=== PATIENT | male | born 1995 | race Caucasian/White ===

== ENCOUNTER 2016-11-02 00:35 | Emergency (ER) | payer BC ==
[~2016-11-02] VITALS: Ht 193 cm; Wt 71.9 kg
[2016-11-02 00:49] VITALS: TEMP 36.4; Ht 193 cm; Wt 71.9 kg
[2016-11-02 01:25] LABS: HEMATOCRIT 40.2 % (42-52); MEAN CELL VOLUME 89.5 fL (80-100); MEAN CORPUSCULAR HEMOGLOBIN 31.6 pg (25-34); MEAN CORPUSCULAR HGB CONC 35.3 g/dl (32-36); MEAN PLATELET VOLUME 10.8 fL (7.4-10.4); PLATELET COUNT 223 K/uL (130-400); RED BLOOD COUNT 4.49 M/uL (4.7-6.1); WHITE BLOOD COUNT 9.28 K/uL (4.8-10.8)
[2016-11-02 01:26] LABS: URINE APPEARANCE CLEAR (CLEAR); URINE BILIRUBIN NEG (NEG); URINE COLOR YELLOW; URINE NITRITE NEG (NEG); URINE SPECIFIC GRAVITY 1.016 (1.000-1.030); UROBILINOGEN NEG (NEG)
[2016-11-02 01:30] LABS: MANUAL MICROSCOPIC REQUIRED? NO; REVIEW REQ? NO
--- NOTE | 2016-11-02 01:36 | EMERGENCY ROOM VISIT NOTE ---
History Report prepared by Sherri: Lenny Carvalho Under the Supervision of: Dr. Digna Ayala D.O. First contact with patient: 00:44 Chief Complaint: ALCOHOL OVERDOSE Stated Complaint: ALCOHOL OVERDOSE Nursing Triage Summary: Patient arrived collared with BLS for evaluation of alcohol overdose. Patient was found at the bottom of a staircase with vomit all over clothes. Unwitnessed fall, laceration to right eyebrow. Unknown LOC. Patient slurring words and rambling. History of Present Illness The patient is a 21 year old male who presents to the Emergency Room via EMS for an alcohol overdose occurring prior to arrival. Per the nursing staff the patient was found at the bottom of the stairs with vomit all over himself and a laceration on his face. Additionally, while in ambulance, the patient started to make less sense throughout the journey. History is limited secondary to intoxication. Source of History: nursing staff History Limited By: intoxication Onset: prior to arrival Position: other (global) Quality: other (alcohol overdose) Associated Symptoms: + vomiting Review of Systems HPI is limited secondary to intoxication. Past Medical & Surgical history is limited secondary to intoxication. Family History history is limited secondary to intoxication. Social History Smoking Status: Never Smoker Housing Status: lives with roommate Occupation Status: [employer] Current/Historical Medications No Active Prescriptions or Reported Meds Allergies Coded Allergies: No Known Allergies (Unverified , 11/02/16) Physical Exam Vital Signs Date Time Temp Pulse Resp B/P (MAP) Pulse Ox O2 Delivery O2 Flow Rate FiO2 11/02/16 07:20 81 15 114/55 95 Room Air 11/02/16 06:47 84 16 116/53 94 Room Air 11/02/16 04:10 92 11/02/16 03:50 91 16 110/63 97 Room Air 11/02/16 02:19 98 Nasal Cannula 2.0 11/02/16 02:19 73 Room Air 11/02/16 00:49 36.4 101 18 109/70 95 Room Air 11/02/16 00:49 95 Room Air 11/02/16 00:46 97 Physical Exam HEENT: Head - 1cm superficial laceration to the right eyebrow. normocephalic. Vomit about his face. Pupils are 2mm and sluggishly reactive to light. Extraocular eye muscles are intact and sclera are anicteric. Ears - bilaterally patent canals with no evidence of hemotympanum. Nose - moist nasal mucosa without evidence of trauma or discharge. Mouth - moist buccal mucosa with no trauma to the teeth or signs of malocclusion. Neck: The cervical collar was temporarily removed while in-line stabilization was maintained. The neck is supple and there is no pain to palpation over the posterior cervical spine and no obvious step-offs or deformities. There is no JVD or tracheal deviation. Chest: There are no signs of deformities, contusions or abrasions to the chest wall. There is no obvious crepitus or paradoxical chest rise. Heart: Regular, rate, and rhythm. There is a normal S1 and S2 with no murmurs, clicks, or gallops appreciated. Lungs: Clear to auscultation bilaterally with no wheezes, rales, or rhonchi. Abdomen: Soft, completely nontender, nondistended, with good bowel sounds. There is no sign of trauma such as contusions, abrasions or penetrations. There are no palpable pulsatile masses or hepatosplenomegaly. There is no guarding, rigidity, or rebound noted. Pelvis: Stable to rock and compression. Extremities: No obvious trauma, deformities, contusions, or edema. There are easily palpable peripheral pulses. Neuro: Muscle strength is 5 out of 5 in all 4 extremities. Otherwise, neuro exam is unremarkable. Back: The entire thoracic, lumbar, and sacral spine were palpated. There are no obvious step-offs or deformities noted. There are no obvious signs of trauma such as contusions abrasions penetrations noted to the back. Medical Decision & Procedures ER Provider Diagnostic Interpretation: Radiology results as stated below per my review and the radiologist's interpretation: CT HEAD: Motion artifact. No evidence of acute intracranial abnormality or skull fracture. Cystic lesion in the posterior fossa may reflect arachnoid cyst or klever cisterna magna Mild paranasal sinus disease of the right ethmoid air cells and maxillary sinus. No fluid levels. Mastoid air cells are clear. Right supraorbital soft tissue swelling CT FACIAL: No evidence acute fracture or dislocation. Right supraorbital soft tissue swelling. Globes appear intact. Mild paranasal sinus disease, no fluid levels CT C SPINE: No evidence acute fracture or malalignment Radiologist: Sherri Dodd M.D. Laboratory Results 11/02/16 00:45 11/02/16 00:45 Test 11/02/16 00:45 11/02/16 01:10 Red Blood Count 4.49 M/uL (4.7-6.1) Mean Corpuscular Volume 89.5 fL (80-100) Mean Corpuscular Hemoglobin 31.6 pg (25-34) Mean Corpuscular Hemoglobin Concent 35.3 g/dl (32-36) RDW Standard Deviation 46.6 fL (36.4-46.3) RDW Coefficient of Variation 14.3 % (11.5-14.5) Mean Platelet Volume 10.8 fL (7.4-10.4) Anion Gap 11.0 mmol/L (3-11) Est Creatinine Clear Calc Drug Dose 130.3 ml/min Estimated GFR () 138.3 Estimated GFR (Non- 119.3 BUN/Creatinine Ratio 10.1 (10-20) Calcium Level 8.1 mg/dl (8.5-10.1) Ethyl Alcohol mg/dL 314.0 mg/dl (0-3) Urine Color YELLOW Urine Appearance CLEAR (CLEAR) Urine pH 5.0 (4.5-7.5) Urine Specific [place] 1.016 (1.000-1.030) Urine Protein NEG (NEG) Urine Glucose (UA) NEG (NEG) Urine Ketones NEG (NEG) Urine Occult Blood NEG (NEG) Urine Nitrite NEG (NEG) Urine Bilirubin NEG (NEG) Urine Urobilinogen NEG (NEG) Urine Leukocyte Esterase NEG (NEG) Laboratory results per my review. ED Course 0044: Past medical records reviewed. The patient was evaluated in room C3. A complete history and trauma physical exam was performed. Laboratory studies were drawn as above. The patient was observed on the monitor and storage bin tender and pulse oximeter. The patient will go for CT scan of the brain, facial bones and cervical spine. A ua was obtained and was negative for blood. 0235: I reevaluated the patient, and he was sleeping and hemodynamically stable 0655: I reevaluated the patient, and he was slightly more awake, and I reexamined his right eye. There is no need for sutures to the right eyebrow 0700: The patient was signed out to Dr. Brown at the change of shift. Medical Decision The patient is a 21 year old male who presents to the ED for an alcohol overdose. Differential diagnosis includes C-spine injury, head injury, facial fracture, alcohol overdose, and drug intoxication. Lab results show: Alcohol of 314, slightly low potassium at 3.2, glucose of 111. The patient suffered trauma by falling down stairs with a LOC. He has a small lac over the right eye. Ct scan of the face, brain, and cervical spine were all negative. Collar remains in place until more sober and can be re-evaluated. The case was signed out to Dr. Brown at change of shift. She will assess for any further trauma once he is sober Head Trauma GCS Score: 13 Medication Reconcilliation Current Medication List: was personally reviewed by me Blood Pressure Screening Patient's blood pressure: Normal blood pressure Impression Primary Impression: Alcohol overdose Additional Impression: Fall down stairs Scribe Attestation The scribe's documentation has been prepared under my direction and personally reviewed by me in its entirety. I confirm that the note above accurately reflects all work, treatment, procedures, and medical decision making performed by me. Departure Information Dispostion Still a Patient Prescriptions No Active Prescriptions or Reported Meds Patient Instructions [facility] Problem Qualifiers Primary Impression: Alcohol overdose Encounter type: initial encounter Injury intent: accidental or unintentional Qualified Codes: T51.91XA - Toxic effect of unspecified alcohol , accidental (unintentional), initial encounter Additional Impression: Fall down stairs Encounter type: initial encounter Qualified Codes: W10.8XXA - Fall (on) ( from) other stairs and steps, initial encounter
[2016-11-02 01:43] LABS: BUN/CREATININE RATIO 10.1 (10-20); CALCIUM 8.1 mg/dl (8.5-10.1); CREATININE 0.92 mg/dl (0.60-1.40); POTASSIUM 3.2 mmol/L (3.5-5.1)
[2016-11-02 02:19] VITALS: O2SAT 98
--- NOTE | 2016-11-02 06:00 | DIAGNOSTIC IMAGING REPORT ---
HEAD WITHOUT CONTRAST (CT) CLINICAL HISTORY: 21 years-old Male presenting with eval for trauma. TECHNIQUE: Multidetector CT imaging of the head was performed without the use of intravenous contrast. IV contrast: None. A dose lowering technique was used consistent with the principles of ALARA (as low as reasonably achievable). COMPARISON: None. CT DOSE (mGy.cm): The estimated cumulative dose is 1663.66 mGy.cm. FINDINGS: Molder Pipe Covering topogram: Unremarkable. Asymmetric swelling of the right temporalis muscle. Subjacent to this, no convincing evidence of calvarial fracture. Trace extra-axial hemorrhage is suggested (series 2 image 22). Subjacent brain parenchyma normal. No significant mass effect or midline shift. Posterior fossa cystic lesion likely arachnoid cyst. Mild associated mass effect. No crowding of the foramen magnum. Ventricles and sulci otherwise normal in size. Paranasal sinuses and mastoid air cells clear. IMPRESSION: 1. Questionable extra-axial hemorrhage subjacent to apparent swelling of the right temporalis muscle. Short-term follow-up noncontrast head CT is suggested to confirm this abnormality versus MR of the brain. Notably, this is discrepant from the preliminary report. Electronically signed by: Lucas Price M.D. 11/02/2016 5:59 AM Dictated Date/Time: 11/02/2016 5:55 AM
--- NOTE | 2016-11-02 07:05 | DIAGNOSTIC IMAGING REPORT ---
CERVICAL SPINE W/O CLINICAL HISTORY: 21 years-old Male presenting with eval for fracture. TECHNIQUE: Multidetector CT of the cervical spine was performed without the use of intravenous contrast. IV contrast: None. A dose lowering technique was used consistent with the principles of ALARA (as low as reasonably achievable). COMPARISON: None. CT DOSE (mGy.cm): The estimated cumulative dose is 1663.66 inclusive of the head CT and CT face. FINDINGS: Inspector Technician topogram: Unremarkable. Normal cervical lordosis. No acute fracture or subluxation. No significant degenerative change. No osseous spinal canal or neural foraminal narrowing. Paraspinal soft tissues within normal limits. Lung apices clear. IMPRESSION: No acute osseous injury of the cervical spine. Electronically signed by: Lucas Price M.D. 11/02/2016 7:04 AM Dictated Date/Time: 11/02/2016 7:01 AM
--- NOTE | 2016-11-02 07:09 | DIAGNOSTIC IMAGING REPORT ---
FACIAL BONES-MXILLOFAC WITHOUT CLINICAL HISTORY: 21 years-old Male presenting with eval for trauma, EtOH, laceration to the right eyebrow. TECHNIQUE: Multidetector CT of the face was performed without the use of intravenous contrast. IV contrast: None. A dose lowering technique was used consistent with the principles of ALARA (as low as reasonably achievable). COMPARISON: None. CT DOSE (mGy.cm): The estimated cumulative dose is 1663.[address] head and CT cervical spine. FINDINGS: Field Sales Representative topogram: Unremarkable. Minimal soft tissue swelling in the right supraorbital region. Orbits normal. Minimal mucosal thickening in right anterior ethmoid air cells in the right maxillary sinus. Mastoid air cells clear. No acute fracture. Upper cervical spine normal. No mandibular fracture. Temporal mandibular joints intact. Limited intracranial evaluation demonstrates a posterior fossa arachnoid cyst. Please see separately dictated CT of the head for further details.. IMPRESSION: Minimal soft tissue swelling in the right supraorbital region consistent with contusion. No acute osseous injury of the face. Minimal mucosal thickening in the right anterior ethmoid air cells and right maxillary sinus. Electronically signed by: Lucas Price M.D. 11/02/2016 7:07 AM Dictated Date/Time: 11/02/2016 7:04 AM
[2016-11-02 09:46] VITALS: BP 117/103; PULSE 110; O2SAT 99
--- NOTE | 2016-11-02 15:46 | EMERGENCY ROOM VISIT NOTE ---
ED Visit Note First contact with patient: 09:31 I received this patient in signout at the change of shift from Dr. Ayala, pending a more sober state. The patient was observed with aspiration precautions maintained. He woke up, ambulated and was able to tolerate by mouth fluids. He was discharged to the care of his friend. He will follow-up with [facility] and return to the ER for any medical concerns.
== END 2016-11-02 09:47 | disposition home or self-care (01) ==
LOC: C.EDC 00:38
DX: T51.91XA Toxic effect of unspecified alcohol, accidental (unintentional), initial encounter (principal); W10.8XXA Fall (on) (from) other stairs and steps, initial encounter; Y90.8 Blood alcohol level of 240 mg/100 ml or more